=== PATIENT | male | born 1955 | race Hispanic/Latino ===

== ENCOUNTER 2018-10-16 10:54 | Emergency (ER) | payer BC ==
[2018-10-16 10:54] VITALS: BMI 35.9
[2018-10-16 12:31] LABS: HEMOGLOBIN 14.2 g/dL (14.0-18.0); MEAN CELL VOLUME 87.9 fl (80.0-105.0); MEAN CORPUSCULAR HEMOGLOBIN 27.8 pg (25.0-35.0); MEAN CORPUSCULAR HGB CONC 31.6 g/dl (31.0-37.0); MEAN PLATELET VOLUME 12.7 fl (7.0-11.0); RBC 5.11 10^6/uL (3.5-6.1); RED CELL DISTRIBUTION WIDTH 15.8 % (11.5-14.5); WHITE BLOOD COUNT 9.8 10^3/uL (4.5-11.0)
[2018-10-16 12:32] LABS: URINE BILIRUBIN NEGATIVE (NEGATIVE); URINE BLOOD NEGATIVE (NEGATIVE); URINE COLOR YELLOW (YELLOW); URINE GLUCOSE (UA) NEGATIVE (NEGATIVE); URINE LEUKOCYTE ESTERASE NEGATIVE Leu/uL (NEGATIVE); URINE PROTEIN NEGATIVE mg/dL (<30 mg/dL); URINE UROBILINOGEN 0.2 E.U./dL (<1 E.U./dL)
[2018-10-16 12:33] LABS: URINE APPEARANCE CLEAR (CLEAR)
--- NOTE | 2018-10-16 12:40 | ED PDOC ---
Arrival/HPI - General Chief Complaint: Male Genitourinary Time Seen by Provider: 10/16/18 11:33 Historian: Patient - History of Present Illness Narrative History of Present Illness (Text): 10/16/18 11:33 Marv Dickens is a 62 year old male, with a past medical history of anxiety and depression, who presents to the emergency department with urinary complaints. Patient informs of urinary urgency over the last couple of weeks. Patient notes fullness in bladder but is able to urinate without issue. Patient states concern about his kidneys. Patient informs he saw PMD who prescribed flomax, but is still concerned due to fullness. Patient informs of urologist appointment in one month, but was unable to wait and requests evaluation. Patient denies trauma, blood in urine, recent weight loss, rashes, constipation, abdominal pain, nausea, vomiting, diarrhea, fevers, chills, night sweats, flank pain, or any other complaints. No SI or HI. No depression or anxiety currently. PMD: Dr. Moody Time/Duration: < month Symptom Onset: Gradual Activities at Onset: Light Context: Home Past Medical History - Provider Review Nursing Documentation Reviewed: Yes - Cardiac Hx Cardiac Disorders: Yes Hx Hypertension: Yes - Pulmonary Hx Respiratory Disorders: No - Neurological Hx Neurological Disorder: No - HEENT Hx HEENT Disorder: No - Renal Hx Renal Disorder: No - Endocrine/Metabolic Hx Endocrine Disorders: No - Hematological/Oncological Hx Blood Disorders: Yes Hx Anemia: Yes (LOW PLATELETS) - Integumentary Hx Dermatological Disorder: No - Musculoskeletal/Rheumatological Hx Musculoskeletal Disorders: Yes Hx Fractures: Yes - Gastrointestinal Hx Gastrointestinal Disorders: Yes Hx Gastroesophageal Reflux: Yes - Genitourinary/Gynecological Hx Genitourinary Disorders: Yes Hx Prostate Problems: Yes - Psychiatric Hx Psychophysiologic Disorder: Yes Hx Anxiety: Yes Hx Substance Use: No - Past Surgical History Past Surgical History: Non-Contributing - Anesthesia Hx Anesthesia Reactions: No Hx Malignant Hyperthermia: No - Suicidal Assessment Feels Threatened In Home Enviroment: No Family/Social History - Physician Review Nursing Documentation Reviewed: Yes Family/Social History: No Known Family HX Smoking Status: Never Smoked Hx Alcohol Use: No Hx Substance Use: No Allergies/Home Meds Allergies/Adverse Reactions: Allergies No Known Allergies Allergy (Verified 10/16/18 11:15) Home Medications: Home Meds Medication Instructions Recorded Confirmed Olmesartan/Hydrochlorothiazide 1 tab PO DAILY 02/06/14 10/16/18 [Benicar Hct 12.5 mg-40 mg] RX: Bupropion HCl [Bupropion HCl 150 mg PO DAILY 10/16/18 10/16/18 Sr] RX: Sertraline [Zoloft] 100 mg PO DAILY 10/16/18 10/16/18 RX: Tamsulosin [Flomax] 1 cap PO DAILY 10/16/18 10/16/18 Review of Systems - Physician Review All systems were reviewed & negative as marked: Yes - Review of Systems Constitutional: absent: Fatigue, Weight Change, Fevers, Night Sweats, Other (no trauma) Eyes: absent: Vision Changes ENT: absent: Hearing Changes Respiratory: absent: SOB, Cough, Sputum Cardiovascular: absent: Chest Pain, Palpitations Gastrointestinal: absent: Abdominal Pain, Constipation, Diarrhea, Nausea, Vomiting, Other (no recent weight loss) Genitourinary Male: Frequency (urinary urgency over past couple of weeks ). absent: Dysuria, Hematuria, Other (flank pain) Musculoskeletal: absent: Arthralgias, Back Pain, Neck Pain Skin: absent: Rash Hemo/Lymphatic: absent: Adenopathy, Easy Bleeding Psychiatric: absent: Anxiety, Depression, Suicidal Ideation Physical Exam Vital Signs Reviewed: Yes Vital Signs Temp Pulse Resp BP Pulse Ox 10/16/18 11:18 98.2 F 69 17 136/76 99 Temperature: Afebrile Blood Pressure: Normal Pulse: Regular Respiratory Rate: Normal Appearance: Positive for: Well-Appearing, Non-Toxic, Comfortable Pain Distress: None Mental Status: Positive for: Alert and Oriented X 3 - Systems Exam Head: Present: Atraumatic, Normocephalic Pupils: Present: PERRL Extroacular Muscles: Present: EOMI Conjunctiva: Present: Normal Ears: Present: Normal Mouth: Present: Moist Mucous Membranes Neck: Present: Normal Range of Motion. No: Meningeal Signs, MIDLINE TENDERNESS Respiratory/Chest: Present: Clear to Auscultation, Good Air Exchange. No: Respiratory Distress, Accessory Muscle Use Cardiovascular: Present: Regular Rate and Rhythm, Normal S1, S2. No: Murmurs Abdomen: Present: Normal Bowel Sounds. No: Tenderness, Distention, Peritoneal Signs, Rebound, Guarding, McBurney's Point Tender Genitourinary Male: Present: Normal External Genitalia. No: Lesions, Testicle Tenderness, Testicle Swelling, Prostate Tenderness, Prostate Enlargement Back: Present: Normal Inspection. No: CVA Tenderness, Midline Tenderness Upper Extremity: Present: Normal Inspection. No: Cyanosis, Edema Lower Extremity: Present: Normal Inspection. No: Edema Neurological: Present: GCS=15, CN II-XII Intact, Speech Normal Skin: Present: Warm, Dry, Normal Color. No: Rashes Psychiatric: Present: Alert, Oriented x 3, Normal Insight, Normal Concentration Medical Decision Making ED Course and Treatment: 10/16/18 13:00 Impression: Patient is a 62 year old male who presents to the emergency department with urinary complaints over past couple weeks. Urinary urgency is main complaint w/ urinary fullness. No trauma or fall. No RLQ or RUQ or LLQ or LUQ pain. On exam well appearing in NAD. Full cup of jean urine produced by pt. No blood noted in urine. Plan: -- Labs -- Urinalysis -- US Bladder Only/Residual Urine -- Renal [US] Stat -- Pelvis Ultrasound -- Reassess and disposition Prior Visits: Notes and results from previous visits were reviewed. Patient was last seen in the emergency department on Progress Notes: 10/16/18 13:32 labs, imaging, unremarkable. Normal PVR prostate exam unremarkable- non boggy Abd non-ttp Back remains non-ttp No cauda equina signs or symptoms. clear for d/c home with follow up and return indications. Pt requests additional urologist I could recc. Pt already has appt w/ Dr. Griffin. I reccomended Dr. Martin per pts request as well. - Lab Interpretations Lab Results: Urine Color Yellow (YELLOW) 10/16/18 12:18 Urine Appearance Clear (CLEAR) 10/16/18 12:18 Urine pH 6.0 (4.7-8.0) 10/16/18 12:18 Ur Specific [place] 1.010 (1.005-1.035) 10/16/18 12:18 Urine Protein Negative mg/dL (<30 mg/dL) 10/16/18 12:18 Urine Glucose (UA) Negative mg/dL (NEGATIVE) 10/16/18 12:18 Urine Ketones Negative mg/dL (NEGATIVE) 10/16/18 12:18 Urine Blood Negative (NEGATIVE) 10/16/18 12:18 Urine Nitrate Negative (NEGATIVE) 10/16/18 12:18 Urine Bilirubin Negative (NEGATIVE) 10/16/18 12:18 Urine Urobilinogen 0.2 E.U./dL (<1 E.U./dL) 10/16/18 12:18 Ur Leukocyte Esterase Negative Jonny/uL (NEGATIVE) 10/16/18 12:18 - RAD Interpretation Radiology Orders: 10/16/18 11:48 BLADDER ONLY/RESIDUAL URINE [US] Stat RENAL [US] Stat - Scribe Statement The provider has reviewed the documentation as recorded by the Scribe Zach Morfin All medical record entries made by the Scribe were at my direction and personally dictated by me. I have reviewed the chart and agree that the record accurately reflects my personal performance of the history, physical exam, medical decision making, and the department course for this patient. I have also personally directed, reviewed, and agree with the discharge instructions and disposition. Disposition/Present on Arrival - Present on Arrival Any Indicators Present on Arrival: No History of DVT/PE: No History of Uncontrolled Diabetes: No Urinary Catheter: No History of Decub. Ulcer: No History Surgical Site Infection Following: None - Disposition Have Diagnosis and Disposition been Completed?: Yes Diagnosis: Urinary urgency Disposition: HOME/ ROUTINE Disposition Time: 13:31 Condition: GOOD Discharge Instructions (ExitCare): Bladder Retraining Additional Instructions: MARV DICKENS, thank you for letting us take care of you today. Your provider was Kieran Mahoney and you were treated for PROBLEM URINATING. The emergency medical care you received today was directed at your acute symptoms. If you were prescribed any medication, please fill it and take as directed. It may take several days for your symptoms to resolve. Return to the Emergency Department if your symptoms worsen, do not improve, or if you have any other problems. Please contact your doctor or call one of the physicians/clinics you have been referred to that are listed on the Patient Visit Information form that is included in your discharge packet. Bring any paperwork you were given at discharge with you along with any medications you are taking to your follow up visit. Our treatment cannot replace ongoing medical care by a primary care provider outside of the emergency department. Thank you for allowing the [facility] team to be part of your care today. If you had an X-Ray or CT scan: A Radiologist will review the ED reading if any change in treatment is needed we will contact you. If you had a blood, urine, or wound culture: It will take several days for the results, if any change in treatment is needed we will contact you. If you had an STI test: It will take 48 hours for the results. Please call after 1 week if you have not heard back. Referrals: Fransisco HOLLAND,Reza Witt MD [Primary Care Provider] - Follow up with primary Mikayla Martin MD [Staff Provider] - Follow up with primary [facility] [Outside] - Follow up with primary [facility] [place] [Outside] - Follow up with primary [facility] [place] [Outside] - Follow up with primary Forms: [employer] (Yoruba)
[2018-10-16 12:45] LABS: ALB/GLOB RATIO 1.3 (1.1-1.8); ALBUMIN 4.7 g/dL (3.0-4.8); ALT/SGPT 40 U/L (7-56); AST/SGOT 41 U/L (17-59); BLOOD UREA NITROGEN 13 mg/dL (7-21); CALCIUM 9.8 mg/dL (8.4-10.5); GFR NON-AFRICAN AMERICAN > 60
[2018-10-16 13:07] VITALS: BP 143/77; PULSE 62; RESP 18; TEMP 98.5; O2SAT 95
--- NOTE | 2018-10-16 13:19 | US ---
Date of service: 10/16/2018 PROCEDURE: Ultrasound of the Kidneys HISTORY: mild retention, fullness COMPARISON: None available. TECHNIQUE: Sonogram of the kidneys. FINDINGS: RIGHT KIDNEY: Measures: 11.3 cm. Normal in size, contour and echogenicity. No stone, solid mass lesion or hydronephrosis visualized. LEFT KIDNEY: Measures: 11.1 cm. Normal in size, contour and echogenicity. No stone, solid mass lesion or hydronephrosis visualized. OTHER FINDINGS: None. IMPRESSION: Unremarkable renal sonogram.
--- NOTE | 2018-10-16 13:20 | US ---
Date of service: 10/16/2018 PROCEDURE: Ultrasound urinary bladder HISTORY: mild retension, fullness COMPARISON: Not available TECHNIQUE: Transabdominal FINDINGS: The distended urinary bladder measures 394.7 cc. The wall is thin and smooth. Bilateral ureteral jets are demonstrated. There is no intraluminal mass. Postvoid residual volume in the bladder is 30.1 cc. The prostate measures 61.4 mL volume. IMPRESSION: 30.1 cc postvoid residual in the urinary bladder.
== END 2018-10-16 14:00 | disposition home or self-care (01) ==
LOC: ED 10:54
DX: R39.15 Urgency of urination (principal); I10 Essential (primary) hypertension